=== PATIENT | female | born 1960 | race Hispanic/Latino ===

== ENCOUNTER 2019-04-14 09:47 | Day surgery (SDC) | payer OTHER ==
[2019-04-12 10:10] LABS: Absolute Lymphocytes (CBC) 1.7 K/uL (0.7-4.9); Basophils % 1.3 % (0-1.3); Hematocrit 39.2 % (36.0-45.0); Lymphocytes % 31.7 % (15.3-44.8); MPV 7.5 fL (7.6-11.3); RBC Red Blood Cell Count 4.42 M/uL (3.86-4.86)
[2019-04-12 10:12] LABS: Protime INR 0.92
[2019-04-12 10:16] LABS: Urine Appearance CLEAR; Urine Bilirubin NEGATIVE (NEG); Urine Blood NEGATIVE (NEG); Urine Color YELLOW; Urine Glucose NEGATIVE (NEG); Urine Protein NEGATIVE (NEG); Urine Specific Gravity <=1.005 (1.005-1.030); Urine Urobilinogen 0.2 mg/dL (0.2-1.0); Urine pH 6.5 (5.0-7.0)
[2019-04-12 10:18] LABS: Urine Microscopic Reflex NO UMIC
[2019-04-12 10:22] LABS: Potassium 3.6 mmol/L (3.5-5.1)
[2019-04-14] MEDS ORDERED: Ringers Lactate 1,000 ML IV ONE ×2 (09:51→13:37)
[2019-04-14] MEDS ORDERED: SCOPOLAMINE HYDROBROMIDE PATCH TD ONE (09:51)
[2019-04-14] MEDS ORDERED: PROPOFOL 200 MG/20 ML VIAL IV ONE (10:22)
[2019-04-14] MEDS ORDERED: FENTANYL CITR 250 MCG/5 ML ONE (10:23)
[2019-04-14] MEDS ORDERED: dexAMETHasone 10 MG/ML VIAL ONE (10:23)
[2019-04-14] MEDS ORDERED: LIDOCAINE 2% MPF 5 ML VIAL ONE (10:23)
[2019-04-14] MEDS ORDERED: KETOROLAC 30 MG/ML INJ ONE (10:23)
[2019-04-14] MEDS ORDERED: ONDANSETRON 4 MG/2 ML VIAL ONE (10:23)
[2019-04-14] MEDS ORDERED: MIDAZOLAM HCL 2 MG/2 ML INJ ONE (10:23)
[2019-04-14] MEDS ORDERED: DIPHENHYDRAMINE 50 MG/ML VIAL ONE (11:14)
[2019-04-14] MEDS: CEFAZOLIN/SWI 2gm 2 GM/20 ML SYR ONE (11:18)
[2019-04-14] MEDS: Ringers Lactate 1,000 ML IV ONE ×2 (11:18→12:30)
[2019-04-14] MEDS ORDERED: ROCURONIUM 50 MG/5 ML VIAL IV ONE (11:20)
[2019-04-14] MEDS ORDERED: NA CHLORIDE 0.9% 100 ML IV ONE (11:23)
[2019-04-14] MEDS ORDERED: CEFAZOLIN/SWI 1gm 1 GM/10 ML SYR ONE (11:23)
[2019-04-14] MEDS ORDERED: VASOPRESSIN 20 UNIT/ML VIAL ONE (11:47)
[2019-04-14] MEDS ORDERED: GLYCOPYRROLATE 0.2 MG/ML SYR ONE ×2 (12:04→15:45)
[2019-04-14] MEDS: VASOPRESSIN 20 UNIT/ML VIAL ONE ×2 (14:05→14:31)
[2019-04-14] MEDS ORDERED: MEPERIDINE HCL 25 MG/0.5 ML IV PRN (15:45)
[2019-04-14] MEDS ORDERED: HYDROCODONE/APAP 5/325 MG TAB PO PRN (15:45)
[2019-04-14] MEDS ORDERED: PROMETHAZINE 25 MG TABLET PO PRN (15:45)
[2019-04-14] MEDS ORDERED: PROMETHAZINE 25 MG/ML VIAL IV PRN (15:45)
[2019-04-14] MEDS ORDERED: Ringers Lactate 1,000 ML IV SCH (16:00)
[2019-04-14 18:10] VITALS: BMI 26.5
[2019-04-15 06:54] LABS: Absolute Lymphocytes (CBC) 1.5 K/uL (0.7-4.9); Basophils % 0.3 % (0-1.3); Hematocrit 33.8 % (36.0-45.0); Lymphocytes % 15.8 % (15.3-44.8); MPV 7.3 fL (7.6-11.3); RBC Red Blood Cell Count 3.81 M/uL (3.86-4.86)
[2019-04-15 08:34] VITALS: O2SAT 97
[2019-04-15 12:50] VITALS: BP 131/77; TEMP 98.5
--- NOTE | 2019-04-18 04:55 | OP ---
Date of Procedure: 04/14/2019 Surgeon: Christina Marie MD Director Of Archives: Nannette Dawson Preoperative Diagnoses: Incomplete uterovaginal prolapse; anterior wall prolapse, stage 2; stress ur inary incontinence; perineal body defect. Postoperative Diagnoses: Incomplete uterovaginal prolapse; anterior wall prolapse, stage 2; stress urinary incontinence; perin eal body defect; and uterine fibroids. Procedures Performed: 1.Total laparoscopic hysterectomy with bilateral salpingo-oophorectomy. 2.Uterosacral ligament suspension, colpopexy, and cystoscopy. 3.Anterior wall repair, vaginal. 4.Perineorrhaphy and distal attachment of the rectovaginal septum to the perineal body. 5.Midurethral sling, TVT-O, and cystoscopy. Anesthesia: General endotracheal. Estimated Blood Loss: Less than 100 mL. Specimens: Uterus, bilateral tubes, and ovaries. Complications: No complications. Drains: Craven catheter, and vaginal packing was left in place. Findings: Patient is POP-Q 0, +1, 0, 5, moderate 6, -1, -2, -4. Uterus with fibroids was evident on the uterus. Uterosacral suspension was performed with 0 Ethibond suture x2. Description Of Procedure: After informed consent was verified in the preop, the patient's questions were answered again. Patient had very good understanding of her options for repair of her prolapse. Her chief complaint was the vaginal bulge, and we discussed there was no postmenopausal bleeding on urodynamic testing. Stress urinary incontinence was very evident. Her apical defect appeared to be the biggest defect for this patient. So, however, the anterior wall defect was at level 2 was also s ignificant. Discussed option of sacrocolpopexy using the synthetic graft augmentation after laparosc opic, supracervical, or total laparoscopic hysterectomy. The patient was very concerned about usage of any synthetic graft material. Explanation of the procedure: Handouts were given and the safety and efficacy of the procedure of sa crocolpopexy was compared with uterosacral ligament suspension with sacrospinous fixation with a serge ve repair. After understanding all the benefits and risks and the recurrence rate, the pa tielisa wanted to proceed with hysterectomy with uterosacral ligament suspension. She was also consent ed that if this was not found to be feasible, then I would do a sacrospinous fixation. Once all thes e were discussed with the patient, she was brought to the OR, then in the preop, she was re-consented and brought to the OR. 2 g of Ancef was given. The patient was placed on the operating table in supine fashion, general ane sthesia given, placed in a dorsal lithotomy position using Ap stirrups. Arms were tucked by the s tyrell. Abdomen, vulva, vagina, and perineum were prepped and draped in a sterile fashion. She was lawanda ped for vaginal and laparoscopic procedures. Craven was placed to drain the bladder and attached with retrograde filling cysto-tubing to an LR bag, emptied 300. A large VCare was introduced into the ut erus and fixed in place. This area was draped. 1 cm supraumbilical incision was made with a scalpel using the open laparoscopy technique. Fascia was incised and tagged with 0 Vicryl sutures. Periton eum entered sharply with Herlinda. S retractor was placed into the peritoneal cavity and Janie introduc ed. Site of entry was checked and was unremarkable. The patient was placed in Trendelenburg after u pper abdominal surfaces were viewed. There was no abnormality seen. The patient was placed in Trend elenburg and a 5 mm left lower quadrant and 10 mm suprapubic ports were placed, and a 5 mm right lowe r quadrant . Retraction of the sigmoid colon with epiploicae was done with the help of a M onocryl suture, passed the needle taxi truck driver then the suture was brought out through the supraumbilical i ncision in the left upper quadrant with the help of a Bradley-Swathi needle. This was held for retr action then the procedure was started. Using a LigaSure device, mesosalpinx window was created for t he IP ligament. The IP ligament was taken down. The mesosalpinx and the round ligament were taken d own with the LigaSure. Anterior broad ligament was opened up, creating a bladder flap all the way to the other side and posteriorly, the dissection was performed, taking down the broad ligament, skelet onizing the vessels, taking the posterior peritoneal incision all the way to the VCare cup in the pos terior aspect where the attachment of the uterosacral should be. Before the start of this, I made a window after tracing the ureter from the pelvic brim to the ureteric tunnel after palpatin g the ischial spine. Peritoneal incision was made between the ureteric tunnel and the uterosacral al l the way superiorly to the level of the ischial spine. This created space, so that the ureter would not be kinked while putting a stitch through the uterosacral. On the opposite side, similar dissect ion was performed after identifying the ureter and releasing the peritoneum, so that this could avoid kinking. So, the dissection was performed aiming to the area where I would place my uterosacral sti tch in the posterior aspect. On the opposite side, similar dissection was performed and once the ves icovaginal space was approached, it was opened with the help of a monopolar hook blade and dissection was carried in a sharp fashion with scissors taking the bladder down from the anterior vaginal wall at least 3 cm from the circumference of the VCare cup, which is the edge of the colpotomy. Once this was done, I went back posteriorly as well and pulled the posterior peritoneum exposing the rectovagi nal septum. Distally did not appear to be posterior enterocele that was large. The defect was mostly anterior, so plan was made to plicate the uterosacrals to the rectovaginal sept um and then fixated to the anterior vaginal wall as well. After the vessels were isolated on the right side as well, windows were made with the monopolar hook blade medial to the vessels. Bipolar basket tip was used to cauterize the vessels, then taken down w ith the LigaSure. Cardinal ligaments were also taken down. These were very thin already. On the op posite side, similar dissection performed as the vessels and cardinals were taken down. Circumferent ial colpotomy was performed with a monopolar hook blade. Specimen was detached and pulled out throug h the vagina. The tubes and ovaries came through the vaginal route as well. The tube and ovary on t he right side were taken down separately and sent out as a separate specimen. The colpotomy was closed with the help of a continuous running 0 PDS suture. Suture was tied on the right end and then continuously run and intracorporeal sutures were placed to finish the suturing at the left end. There was excellent closure. This was the first layer. Then, the second closure was done with the help of 0 PDS in the center with a nice wide aqwzos-ap-yirak bringing the anterior vagi nal wall fascia and the rectovaginal septum altogether, so in the middle, they were all apposed with a buried gqlozj-uv-puznu. Then, 2 more sutures were planned to be placed. First, an Ethibond suture passed through the distal 5 cm, a plicating suture was placed and the posterior rectovaginal septum was taken carefully without entering the vaginal epithelium since permanent suture being placed, lennox cially braided one. The anterior vaginal wall was also taken and the fascia was included. Here afte r this was passed, this was lateral to the center [id number]-[id number] suture, which was the second layer closure, so on this side when the Ethibond was tied down, it was essentially closing the second layer . Another Ethibond suture was taken and was placed in a similar fashion on the opposite side. Then, the proximal uterosacrals were plicated with another suture just attaching this to the central aspec t of the rectovaginal septum that was not sutured before, so posterior wall at the apex to the uterosacrals. This was not passed with the anterior vaginal wall. After the entire repair was done, there was excellent support and pull. Vaginally, examination was p erformed and point C was at -6. The anterior vaginal wall still had a slight bulge, so plan was to p erform an anterior repair to shorten the vaginal epithelium and plicate the suture sideways. Craven was removed, cystoscopy was performed with the 17-Spanish sheath, normal saline, and 30-degree l ens. There were normal strong jets of urine from both ureteric orifices. No evidence of any trauma to the bladder and on examination of the vagina, no Ethibond sutures in the vaginal epithelium. The Craven was replaced, clamped with a Adilia. There was adequate urinary output about 200. Then, af ter changing the gloves, went back to the top. Thorough irrigation and suction were performed and tr ocars were removed under direct vision. The Monocryl suture was removed as well releasing the sigmoi d without any problems. Then, all the gas was desufflated. The umbilical trocar was removed. Fasci a at the umbilicus was plicated with a 0 Vicryl in a nfqyij-[id number]-lwtvu fashion, tying at both ends and then simple 0 Vicryl suture to close the subcutaneous tissues and a simple 0 Vicryl suture at the fas barbara in the suprapubic area. All incisions were closed with the help of interrupted sutures. After the upper abdomen was draped, vaginal procedure was started. The Allis clamp was placed proxim al to the ureterovesical junction and then another placed slightly below the level of the apex. It w as very difficult to get to this part, so I did not make an attempt to go all the way to the apex, in which the first 3 cm were plicated suspending it to the uterosacral, so dilute vasopressin 20 units mixed with 50 cc of normal saline, about 15 cc was injected here. 15 blade used to make an incision in the center. The bladder was dissected away from the endopelvic fascia. Once this was dissected, the lateral flaps were created at least 1.5 cm wide. These were trimmed without shortening from the top down, sideways and this closure was performed in the vertical midline without creating any shorte verna of the vagina. A coe[place]'al[place] tissue cystocele repair was done with 2-0 Vicryl sutures in a continuou s running fashion. Once this was done posteriorly, genital hiatus was evaluated with 5 cm, this had to be narrowed down. The hymenal remnants were identified and Allis was placed here. A triangular s kin incision was placed on the perineum with the help of a 15 blade first after infiltrating with vas opressin about 20 cc on the perineum and the distal rectovaginal septum and lateral to the perineal b emily scar. A rectovaginal exam was performed just to understand the thickness of the area here for dissection an d it was pretty thick. So, once a triangular skin area was removed, dissection was carried into the posterior space raising the epithelium, subepithelium over the rectovaginal septum. The perineal bod y scar was dissected and the ends of the transverse perinei were identified. Then, closure here was performed with the help of interrupted 2-0 PDS sutures. Three of these were placed to rebuild the pe rineal body, decrease the genital hiatus to about 3-1/2 cm. Then, the distal rectovaginal septum did not need much dissection. This was reattached with the help of 2-0 Vicryl to the perineal body then 3-0 Vicryl suture was used to continuously run and closed the epithelium in the vagina as well as on the perineum in a subcuticular fashion, coming up and tying the knot inside the hymenal ring. Rectal exam was performed, no evidence of any perforation or trauma. After gloves were changed, the mid urethral area was grasped with the help of 2 Allis clamps, injecte d with dilute vasopressin. The patient was placed in high lithotomy. Skin markings were placed at t he level of the horizontal line dropped at the external meatus, one 2 cm lateral and 1 cm superior to the parallel transverse line in the groin for the exit points of the TVT-O incision was made with a 15 blade, 1 to 1.5 cm incision made. Dissection carried to 45 degree angle hugging the inferior pubi c ramus, opening the obturator space, and perforating the obturator membrane on both sides, creating the tract. This tract was retraced after the TVT-O was opened and the wing guide was placed and the spike was placed in the usual fashion exiting at the point that was marked on both sides. After the plastic dilators were cut, sheaths were held with Adilia clamps, tensioning was done with Larimer in the middle appropriately. The sheaths were pulled out. The mesh was trimmed, flushed with the skin. Th orough irrigation and suction were performed at the mid urethral area and the closure was done with t he help of continuous running 3-0 Vicryl. Skin incisions were closed with Dermabond. Cystoscopy was performed again. There was no evidence of any perforation or foreign body in the bladder. Scope wa s removed. Craven was replaced. Vaginal packing was placed. Instrument, needle, and sponge counts w ere done and were correct at the end of the case. The patient tolerated the procedure well. She was recovered from anesthesia in the OR and taken to PACU in stable condition. DEE/ANTHONY Voice ID: [id number] Report ID: [id number]
== END 2019-04-15 14:30 | disposition home or self-care (01) ==
LOC: OR 09:47 → 2ND-WC 16:17 → OR 04-15 14:30
PROVIDERS: ATTEND Obstetrics & Gynecology
PROC: 0UT24ZZ Resection of Bilateral Ovaries, Percutaneous Endoscopic Approach (ICD-10-PCS; 2019-04-14)
PROC: 0UT74ZZ Resection of Bilateral Fallopian Tubes, Percutaneous Endoscopic Approach (ICD-10-PCS; 2019-04-14)
PROC: 0JQC0ZZ Repair Pelvic Region Subcutaneous Tissue and Fascia, Open Approach (ICD-10-PCS; 2019-04-14)
PROC: 0TSD0ZZ Reposition Urethra, Open Approach (ICD-10-PCS; 2019-04-14)
PROC: 0USG7ZZ Reposition Vagina, Via Natural or Artificial Opening (ICD-10-PCS; 2019-04-14)
PROC: 0UT94ZZ Resection of Uterus, Percutaneous Endoscopic Approach (ICD-10-PCS; principal; 2019-04-14 11:30)
DX: N81.2 Incomplete uterovaginal prolapse (principal); N81.81 Perineocele; N39.3 Stress incontinence (female) (male); N88.0 Leukoplakia of cervix uteri; N88.8 Other specified noninflammatory disorders of cervix uteri; D25.9 Leiomyoma of uterus, unspecified; N80.0 Endometriosis of uterus; N83.8 Other noninflammatory disorders of ovary, fallopian tube and broad ligament; N94.89 Other specified conditions associated with female genital organs and menstrual cycle; I10 Essential (primary) hypertension; M19.90 Unspecified osteoarthritis, unspecified site; Z79.899 Other long term (current) drug therapy
CPT/HCPCS: 58571; 57285; 57283; 57288; 85025 ×2; 80048; 36415 ×2; 86900; 86850; 85610; 86901; 88307; 85730; 81003; J2704; J2550; J2250; J3010; J1100; J0690 ×2; J2405